=== PATIENT | female | born 1960 | race Two or more races ===

== ENCOUNTER 2021-12-11 06:18 | Emergency (ER) | payer MEDICAID ==
[~2021-12-11] VITALS: Ht 154.9 cm; Wt 109.1 kg
[2021-12-11] MEDS ORDERED: HYDR25TA2 PO (06:49)
[2021-12-11] MEDS ORDERED: ATOR10TA84 PO (06:49)
[2021-12-11] MEDS ORDERED: METF-1211 PO (06:49)
[2021-12-11] MEDS ORDERED: IBUPROFEN 600 MG TABLET PO ONE (07:00)
[2021-12-11 07:37] VITALS: BP 130/73
== END 2021-12-11 08:49 | disposition home or self-care (01) ==
LOC: EMS 06:18
DX: S82.55XA Nondisplaced fracture of medial malleolus of left tibia, initial encounter for closed fracture (principal); I10 Essential (primary) hypertension; E78.00 Pure hypercholesterolemia, unspecified; E11.9 Type 2 diabetes mellitus without complications; Z79.899 Other long term (current) drug therapy; Z79.84 Long term (current) use of oral hypoglycemic drugs; W01.0XXA Fall on same level from slipping, tripping and stumbling without subsequent striking against object, initial encounter; Y93.89 Activity, other specified; Y92.89 Other specified places as the place of occurrence of the external cause; Y99.8 Other external cause status
CPT/HCPCS: 29515; 82962; 99284